=== PATIENT | female | born 1980 | race Caucasian/White ===

== ENCOUNTER → 2019-11-08 13:12 | Outpatient (BNVA) | payer BC, SELFPAY | PROVIDERS: PCP Student in an Organized Health Care Education/Training Program; Referring Provider Student in an Organized Health Care Education/Training Program; Visit Provider Specialist | DX: G40.109 Localization-related (focal) (partial) symptomatic epilepsy and epileptic syndromes with simple partial seizures, not intractable, without status epilepticus (principal); F17.210 Nicotine dependence, cigarettes, uncomplicated | CPT/HCPCS: 99204 ==